=== PATIENT | male | born 1995 | race Caucasian/White ===

== ENCOUNTER 2017-02-07 01:30 | Emergency (ER) | payer SELFPAY ==
[~2017-02-07] VITALS: Ht 172.7 cm; Wt 60.0 kg
[~2017-02-07 01:30] MED LIST: DIVA500 PO; RISP1 PO
[2017-02-07 01:33] VITALS: BP 110/60; PULSE 72; RESP 16; TEMP 98.9; O2SAT 98
[2017-02-07] MEDS ORDERED: RISP2TAB37 PO (03:57)
[2017-02-07] MEDS ORDERED: DIVA500T PO (03:57)
[2017-02-07] MEDS ORDERED: VALP250 PO (03:57)
[2017-02-07 04:36] LABS: AUTOMATED NEUTROPHIL # 2.9 TH/MM3 (1.8-7.7); BASOPHIL # 0.1 TH/MM3 (0-0.2); BASOPHIL % 0.8 % (0.0-2.0); EOSINOPHIL # 0.2 TH/MM3 (0-0.4); EOSINOPHIL % 2.9 % (0.0-4.0); HEMATOCRIT 40.5 % (39.0-51.0); HEMO FLAGS DIFF FINAL; LYMPH % 46.8 % (9.0-44.0); LYMPHOCYTE # 3.7 TH/MM3 (1.0-4.8); MEAN CELL VOLUME 90.1 FL (80.0-100.0); MEAN CORPUSCULAR HEMOGLOBIN 31.9 PG (27.0-34.0); MEAN CORPUSCULAR HGB CONC 35.4 % (32.0-36.0); MONO % 12.4 % (0.0-8.0); NEUT % 37.1 % (16.0-70.0); PLATELET COUNT 205 TH/MM3 (150-450); RED CELL DISTRIBUTION WIDTH 13.3 % (11.6-17.2); WHITE BLOOD COUNT 7.9 TH/MM3 (4.0-11.0)
[2017-02-07 04:41] LABS: AMPHETAMINE, URINE NEG (NEG); BARBITURATES, URINE NEG (NEG); COCAINE, URINE NEG (NEG)
[2017-02-07 04:49] LABS: ALT (GPT) 15 U/L (12-78); ANION GAP 5 MEQ/L (5-15); AST (GOT) 11 U/L (15-37); BICARBONATE 28.7 MEQ/L (21.0-32.0); BLOOD UREA NITROGEN 13 MG/DL (7-18); CHLORIDE 106 MEQ/L (98-107); GLOMERULAR FILTRATION RATE 102 ML/MIN (>89); POTASSIUM 3.8 MEQ/L (3.5-5.1); SODIUM (NA) 140 MEQ/L (136-145)
[2017-02-07 04:50] LABS: ALKALINE PHOSPHATASE 84 U/L (45-117); TOTAL BILIRUBIN ADULT 0.5 MG/DL (0.2-1.0)
--- NOTE | 2017-02-07 05:29 | PD ---
HPI . Suicidal ideation Chief Complaint: Psychiatric Symptoms Time Seen by Provider: 04:11 Travel History International Travel<30 days: No Contact w/Intl Traveler<30days: No Traveled to known affect area: No History of Present Illness HPI Patient presents complaining with suicidal ideation. He reports that he's been feeling depressed for the last couple weeks. It became acutely worse tonight. He does not have a plan. PFSH Past Medical History ADHD: Yes Depression: Yes Diminished Hearing: No Immunizations Current: Yes Schizophrenia: Yes Past Surgical History Surgical History: No Previous Surgery Social History Alcohol Use: No Tobacco Use: Yes (1/2PPD) Substance Use: No Allergies-Medications (Allergen,Severity, Reaction): Coded Allergies: No Known Allergies (Unverified , 02/07/17) Reported Meds & Prescriptions Reported Meds & Active Scripts Active Reported Risperdal (Risperidone) 2 Mg Tab 2 Mg PO Q12HR Divalproex DR (Divalproex Sodium) 500 Mg Tabdr 500 Mg PO BID Review of Systems Except as stated in HPI: all other systems reviewed are Neg Psychiatric: Positive: Depression, Suicidal Ideations Physical Exam Narrative GENERAL: Awake and alert and in no acute distress. SKIN: Warm and dry. HEAD: Atraumatic. Normocephalic. EYES: Pupils equal and round. Extraocular movements are intact. NECK: Trachea midline. Neck is supple. CARDIOVASCULAR: Regular rate and rhythm. RESPIRATORY: No accessory muscle use. MUSCULOSKELETAL: No obvious deformities. No edema. NEUROLOGICAL: Awake and alert. No obvious cranial nerve deficits. Motor grossly within normal limits. Normal speech. PSYCHIATRIC: Pressured speech. Data Data Last Documented VS Vital Signs Date Time Temp Pulse Resp B/P Pulse Ox O2 Delivery O2 Flow Rate FiO2 02/07/17 01:33 98.9 72 16 110/60 98 Room Air Orders Complete Blood Count With Diff (02/07/17 04:11) Comprehensive Metabolic Panel (02/07/17 04:11) Psych Screen (02/07/17 04:11) Drug Screen, Random Urine (02/07/17 04:11) Alcohol (Ethanol) (02/07/17 04:11) Labs Laboratory Tests Test 02/07/17 04:27 White Blood Count 7.9 TH/MM3 Red Blood Count 4.50 MIL/MM3 Hemoglobin 14.4 GM/DL Hematocrit 40.5 % Mean Corpuscular Volume 90.1 FL Mean Corpuscular Hemoglobin 31.9 PG Mean Corpuscular Hemoglobin 35.4 % Concent Red Cell Distribution Width 13.3 % Platelet Count 205 TH/MM3 Mean Platelet Volume 8.1 FL Neutrophils (%) (Auto) 37.1 % Lymphocytes (%) (Auto) 46.8 % Monocytes (%) (Auto) 12.4 % Eosinophils (%) (Auto) 2.9 % Basophils (%) (Auto) 0.8 % Neutrophils # (Auto) 2.9 TH/MM3 Lymphocytes # (Auto) 3.7 TH/MM3 Monocytes # (Auto) 1.0 TH/MM3 Eosinophils # (Auto) 0.2 TH/MM3 Basophils # (Auto) 0.1 TH/MM3 CBC Comment DIFF FINAL Differential Comment Sodium Level 140 MEQ/L Potassium Level 3.8 MEQ/L Chloride Level 106 MEQ/L Carbon Dioxide Level 28.7 MEQ/L Anion Gap 5 MEQ/L Blood Urea Nitrogen 13 MG/DL Creatinine 0.92 MG/DL Estimat Glomerular Filtration 102 ML/MIN Rate Random Glucose 90 MG/DL Calcium Level 8.9 MG/DL Total Bilirubin 0.5 MG/DL Aspartate Amino Transf 11 U/L (AST/SGOT) Alanine Aminotransferase 15 U/L (ALT/SGPT) Alkaline Phosphatase 84 U/L Total Protein 6.8 GM/DL Albumin 3.9 GM/DL Urine Opiates Screen NEG Urine Barbiturates Screen NEG Urine Amphetamines Screen NEG Urine Benzodiazepines Screen NEG Urine Cocaine Screen NEG Urine Cannabinoids Screen POS Ethyl Alcohol Level LESS THAN 3 MG/DL MDM Medical Decision Making Medical Screen Exam Complete: Yes Emergency Medical Condition: Yes Medical Record Reviewed: Yes (patient has been seen here on several previous occasions. He has several previous psychiatric diagnoses including drug- induced mood disorder, polysubstance abuse, schizophrenia, bipolar disorder, schizoaffective disorder.) Differential Diagnosis Differential diagnosis includes but is not limited to depression with suicidal gesture, suicide attempt, suicidal ideation, attention seeking behavior. Narrative Course Patient presents to us complaining with suicidal ideation. He is homeless. He has been sound asleep since we finished our intake evaluation. CBC & BMP Diagram 02/07/17 04:27 Tox screen is positive for THC. This patient is medically clear for psychiatric evaluation. Diagnosis Primary Impression: Suicidal ideation Condition: Stable Teresa Ceja MD Feb 07, 2017 05:29
[2017-02-07 06:32] VITALS: BP 116/56; PULSE 57; RESP 18
[2017-02-07 09:35] VITALS: BP 117/56; PULSE 58; RESP 18; O2SAT 98
[2017-02-07 18:37] VITALS: BP 102/52; PULSE 78; RESP 17; TEMP 98.9; O2SAT 98
[2017-02-07 22:11] VITALS: BP 104/56; PULSE 50; RESP 17; O2SAT 98
[2017-02-08 02:16] VITALS: BP 139/64; PULSE 78; RESP 18; O2SAT 98
[2017-02-08 06:23] VITALS: BP 109/59; PULSE 69; RESP 19; O2SAT 99
--- NOTE | 2017-02-08 12:17 | MB ---
cc: LD PHILLIPS DATE OF CONSULTATION 02/08/2017 PHYSICIAN REQUESTING CONSULTATION Emergency department REASON FOR CONSULTATION Voluntary psychiatric evaluation. HISTORY OF PRESENT ILLNESS Mr. Jain is a 22-year-old male with a history of substance use issues and a reported history of depression who presents on a voluntary basis requesting psychiatric evaluation. The patient told the ED provider that he has been feeling depressed. Reviewing the electronic medical record, I see that I myself saw the patient in consultation in August of last year with a diagnosis of drug induced mood disorder at that time. He was previously admitted before that under Dr. Boykin. The patient seen and examined. Chart reviewed. Case discussed with nurse in the [facility]. There has been no evidence of any behavioral disturbance, no suicidality or homicidality while under observation in the [facility]. On my examination today, the patient is clinically sober. He reports that he came into the emergency room last night because he was feeling somewhat anxious since Tuesday. There was no clear trigger for this anxiety. He reports that this anxiety is now completely resolved. He tells me "I do not want to kill myself." He denies any suicidal or homicidal ideation, intent or plan on direct questioning. Mood is fair and I can elicit no depressive or hypomanic/manic symptoms at this time. He denies any audiovisual hallucinations and I can elicit no delusional beliefs. The remainder of the psychiatric ROS is negative. The patient is requesting discharge from the psychiatric emergency room this morning. PAST PSYCHIATRIC HISTORY The patient reports a history of depression. He follows psychiatrically at [facility] and is reportedly prescribed Zoloft with which he has good adherence. He cannot recall when his most recent psychiatric admission was, but as I said above, he was admitted here most recently under Dr. Boykin last year. He denies any history of suicide attempts. FAMILY HISTORY The patient denies any family history of serious mental illness, substance use disorder or suicide. CHEMICAL DEPENDENCY HISTORY The patient reports regular use of cannabis. He also drinks but not daily. He does not black out when he drinks. SOCIAL HISTORY The patient is presently without stable housing. He is single with no children. He does not work and has a ninth grade education. He denies any or legal history. He denies any history of violent crime. He denies any access to guns or firearms. PAST MEDICAL HISTORY The patient denies any history of medical illness. REVIEW OF SYSTEMS No reported headache, chest pain, vision or hearing changes, bowel or bladder issues. No other physical complaints. PHYSICAL EXAMINATION VITAL SIGNS: T98.9, P69, R19, BP109/59, SpO2 99% RA A physical examination was completed by the emergency room staff. On my examination today, the patient appears to be well-nourished and well-developed and in no acute physical distress. No motor abnormalities noted. LABORATORY DATA CBC unremarkable, CMP unremarkable, Tox +THC. MENTAL STATUS EXAM The patient is in hospital gown. He is well-groomed and appears to be attending to basic needs. He is awake, alert and oriented x3. No evidence of delirium. No motor abnormalities noted. Speech is within normal limits for rate, tone and volume. Language and fund of knowledge seem average. Mood is fair and affect is full and reactive. Thought process linear. No loosening of associations. No evident delusions. Denies audiovisual hallucinations. Denies suicidal or homicidal ideation, intent or plan. Insight and judgment are fair. ASSESSMENT/PLAN 1. Adjustment disorder, unspecified, now resolved, F43.20. 2. Cannabis abuse, F12.10. This is a 22-year-old male with psychiatric history as detailed above who presents on a voluntary basis to the emergency department for psychiatric evaluation. On my examination today, the patient is cooperative with evaluation. There is no evidence of any unstable mood, anxiety or psychotic disorder in this patient at this time. He is denying suicidal or homicidal ideation. He appears to be attending to his basic needs. Putting this information together and weighing the acute, chronic, and protective factors, I ocean biologist that the patient does not presently meet [place] Act criteria. He is requesting discharge from the psychiatric emergency room. Given that he does not meet Vinson Act criteria and is requesting discharge, I must recommend his discharge from the emergency room today. I have instructed the patient to follow up with his outpatient psychiatric provider. I have counseled him to abstain from substances of abuse. I have reminded him of warning signs for need to return to the psychiatric emergency room as part of general safety plan. The patient is otherwise psychiatrically clear for discharge from the ED. Thank you very much for this consultation. Ld Phillips DC/DJL /9:49 AM /12:09 PM MTDJacquelyn
== END 2017-02-08 11:18 | disposition home or self-care (01) ==
LOC: NEPC 01:30 → NEPJ 02-08 11:18
DX: R45.851 Suicidal ideations (principal); F32.9 Major depressive disorder, single episode, unspecified; F90.9 Attention-deficit hyperactivity disorder, unspecified type; F20.9 Schizophrenia, unspecified; F17.200 Nicotine dependence, unspecified, uncomplicated
CPT/HCPCS: 80053; 80307; 85025; 99285

== ENCOUNTER 2017-03-14 20:54 | Emergency (ER) | payer SELFPAY ==
[~2017-03-14 20:54] MED LIST changes: -DIVA500 PO; +DIVA500T PO; -RISP1 PO; +RISP2TAB37 PO
[2017-03-14] MEDS ORDERED: CELE10TA PO (21:23)
[2017-03-14] MEDS ORDERED: BUPR150CR PO (21:23)
[2017-03-14 21:25] VITALS: BP 118/70; PULSE 84; RESP 16; TEMP 97.6; O2SAT 96
--- NOTE | 2017-03-14 22:59 | PD ---
HPI . Intoxication Chief Complaint: Alcohol/Drug Intoxication Time Seen by Provider: 22:36 Travel History International Travel<30 days: No Contact w/Intl Traveler<30days: No Traveled to known affect area: No History of Present Illness HPI Patient is brought to us I believe by the police department for acute intoxication. Other history is obtainable from the patient. PFSH Past Medical History ADHD: Yes Depression: Yes Diminished Hearing: No Immunizations Current: Yes Schizophrenia: Yes Past Surgical History Surgical History: No Previous Surgery Social History Alcohol Use: Yes Tobacco Use: Yes (1/2PPD) Substance Use: Yes (marijuana) Allergies-Medications (Allergen,Severity, Reaction): Coded Allergies: No Known Allergies (Unverified , 03/14/17) Reported Meds & Prescriptions Reported Meds & Active Scripts Active Reported Wellbutrin SR 12 HR (Bupropion HCl) 150 Mg Tab 150 Mg PO DAILY Celexa (Citalopram Hydrobromide) 10 Mg Tab 10 Mg PO DIRECTED Risperdal (Risperidone) 2 Mg Tab 2 Mg PO Q12HR Review of Systems ROS Limitations: Intoxication Physical Exam Narrative GENERAL: Asleep. No acute distress. SKIN: Warm and dry. HEAD: Atraumatic. Normocephalic. EYES: Pupils equal and round. NECK: Trachea midline. CARDIOVASCULAR: Regular rate and rhythm. RESPIRATORY: No accessory muscle use. MUSCULOSKELETAL: No obvious deformities. No edema. NEUROLOGICAL: Moving all 4 extremities equally PSYCHIATRIC: Unable to assess Data Data Last Documented VS Vital Signs Date Time Temp Pulse Resp B/P Pulse Ox O2 Delivery O2 Flow Rate FiO2 03/14/17 21:25 97.6 84 16 118/70 96 MDM Medical Decision Making Medical Screen Exam Complete: Yes Emergency Medical Condition: Yes Differential Diagnosis Differential diagnosis of altered mental status includes but is not limited to infection, electrolyte abnormality, neurological event, intoxication Narrative Course Patient is brought in to us with acute intoxication. He will be allowed to sleep it off. Diagnosis Primary Impression: Acute alcohol intoxication Qualified Code: F10.920 - Acute alcohol intoxication, uncomplicated Patient Instructions: Alcohol Intoxication (DC), General Instructions Disposition: 01 DISCHARGE HOME Condition: Stable Teresa Ceja MD March 14, 2017 22:58
[2017-03-14 23:40] VITALS: BP 108/68; PULSE 76; RESP 16; O2SAT 98
== END 2017-03-15 06:27 | disposition home or self-care (01) ==
LOC: NEPD 20:54
DX: F10.129 Alcohol abuse with intoxication, unspecified (principal); F90.9 Attention-deficit hyperactivity disorder, unspecified type; F32.9 Major depressive disorder, single episode, unspecified; F20.9 Schizophrenia, unspecified; F17.210 Nicotine dependence, cigarettes, uncomplicated; F12.90 Cannabis use, unspecified, uncomplicated; Y90.9 Presence of alcohol in blood, level not specified
CPT/HCPCS: 99281

== ENCOUNTER 2017-04-12 11:38 | Inpatient (IN) | payer SELFPAY ==
[~2017-04-12] VITALS: Ht 172.7 cm; Wt 55.6 kg
[~2017-04-12 11:38] MED LIST changes: +BUPR150CR PO; +CELE10TA PO; -DIVA500T PO
[2017-04-12] MEDS ORDERED: ACETAMINOPHEN 325 MG TAB PO PRN (12:30)
[2017-04-12] MEDS ORDERED: diphenhydrAMINE HCL 50 MG CAP PO PRN (13:00)
[2017-04-12] MEDS ORDERED: BENZTROPINE MESYLATE 1 MG TAB PO PRN (13:00)
[2017-04-12] MEDS ORDERED: ALUMINUM/MAGNESIUM/SIMETH 30 ML CUP PO PRN (13:00)
[2017-04-12] MEDS ORDERED: BENZTROPINE MESYLATE 2 MG/2 ML VIAL IM PRN (13:00)
[2017-04-12] MEDS ORDERED: MAGNESIUM HYDROXIDE SUSP 30 ML CUP PO PRN (13:00)
[2017-04-12 14:53] VITALS: BP 115/72; PULSE 69; RESP 18; TEMP 98.3; O2SAT 96
[2017-04-12 16:47] VITALS: BP 105/58; PULSE 61; RESP 18; TEMP 98; O2SAT 97
[2017-04-13 06:00] VITALS: BP 97/53; PULSE 73; RESP 18; TEMP 98.2; O2SAT 97
[2017-04-13] MEDS: REMOVE OLD PATCH T-DERMAL SCH (09:00)
[2017-04-13 09:17] LABS: ANION GAP 10 MEQ/L (5-15); BICARBONATE 26.3 MEQ/L (21.0-32.0); BLOOD UREA NITROGEN 13 MG/DL (7-18); CHLORIDE 106 MEQ/L (98-107); GLOMERULAR FILTRATION RATE 133 ML/MIN (>89); POTASSIUM 3.9 MEQ/L (3.5-5.1); SODIUM (NA) 142 MEQ/L (136-145)
[2017-04-13 09:23] LABS: HDL CHOLESTEROL 39.7 MG/DL (40.0-60.0); LDL CHOLESTEROL 118 MG/DL (0-99)
[2017-04-13] MEDS: NICOTINE 21 MG/24 HR PATCH T-DERMAL SCH (09:28)
--- NOTE | 2017-04-13 12:37 | HHI.HP ---
Provisional Diagnosis Admission Date Apr 12, 2017 at 11:57 [place] I. 1. Adjustment disorder with depressed mood Rule out drug-induced mood disorder 2. Cannabis abuse [place] II. Deferred [place] V. GAF is at least 45 presently Certification of Person's Competence To Provide Express and Informed Consent I have personally examined Jimmie Jain , a person being served at [facility] on, Apr 13, 2017 12:37. Express and informed consent means consent voluntarily given in writing, by a competent person, after sufficient explanation and disclosure of the subject matter involved to enable the person to make a knowing and willful decision without any element of force, fraud, deceit, duress, or other form of constraint or coercion. This person is 18 years of age or older, is not now known to be incompetent to consent to treatment with a guardian advocate, and does not have a health care surrogate or proxy currently making medical treatment decisions. I have found this person to be one of the following: [x] Competent to provide express and informed consent, as defined above, for voluntary admission to this facility and is competent to provide express and informed consent for treatment. He/she has the consistent capacity to make well reasoned, willful, and knowing decisions concerning his or her medical or mental health treatment. The person fully and consistently understands the purpose of the admission for examination/placement and is fully capable of personally exercising all rights assured [place] Incompetent to provide express and informed consent to voluntary admission, and this is incompetent to provide express and informed consent to treatment. The person must be transferred to involuntary status and a petition for a guardian advocate filed with the Circuit Court. [] Refusing to provide express and informed consent to voluntary admission but is competent to provide express and informed consent for treatment. The person must be discharged or transferred to involuntary status. Form shall be completed within 24 hours of a person's arrival at the receiving facility and filed in the clinical record of each person: 1. Admitted on a voluntary basis 2. Permitted to provide express and informed consent to his/her own treatment 3. Allowed to transfer from involuntary to voluntary status 4. Prior to permitting a person to consent to his or her own treatment after having been previously found incompetent to consent to treatment. History of Present Illness Capacity: Has Capacity HPI Mr. Jain is a 22-year-old male with a reported history of depression, anxiety and ADHD and a chart history of psychotic disorder and substance use issues who presents in transfer from outside hospital under a Vinson act alleging suicidal ideation. Outside hospital records reviewed. Reviewing are on electronic medical record, I note that I have seen the patient twice in the last year in consultation in the emergency department and the patient was admitted most recently here under Dr. Boykin in July of last year. I also note several ED visits for substance use issues. Patient seen and examined with counselor. Chart reviewed. Case discussed with nursing staff. Patient presents as somewhat manipulative. He denies suicidal ideation, intent or plan at this time but says "I don't want to take the risk" of leaving the hospital at this time, although I had not even broached the subject of a possible discharge at that point. He describes his mood as depressed for the last month without clear trigger. His sleep and appetite are reportedly fair. He endorses some feelings of hopelessness or worthlessness. He denies audiovisual hallucinations and I can elicit no delusional material. No hypomanic or manic symptoms noted. He denies any homicidal ideation. He has been nonadherent with his psychotropic medications since discharge from the inpatient psychiatric unit most recently. The remainder of the psychiatric ROS is negative. Past psychiatric history: The patient reports prior diagnoses as noted above. He was apparently previously an outpatient of Dr. Bansal, but has not followed up psychiatrically in some time. He denies a history of suicide attempts. He does have a history of nonsuicidal self-injurious behavior, namely cutting. Says that he does well on Celexa and Wellbutrin. He believes his most recent doses were Celexa 20 mg daily and Wellbutrin 150 mg daily. Family history: The patient denies a family history of serious mental illness or suicide. Chemical dependency history: The patient admits to ongoing use of cannabis, and his urine toxicology from outside hospital was positive for this. He also endorses a history of cocaine use, most recently a month ago. Social history: The patient reports that he lives with his grandmother. He is single with no children. He dropped out of the ninth grade. Denies any history. Denies any legal history. Denies any access to guns or firearms. Denies any adventist or spiritual beliefs. Denies any history of trauma. Review of Systems Except as stated in HPI: all other systems reviewed are Neg Past Psych History Psychological trauma history No reported history of trauma Violence risk - others (6 mos) Lower imminent risk. Denies homicidal ideation. No known history of violence. No evidence of violence on the unit. Violence risk - self (6 mos) Indeterminate but suspect lower imminent risk. Patient denies suicidal ideation at this time but alleges that he was suicidal on initial presentation to outside hospital. Substance use is certainly a risk factor. Patient denies a history of suicide attempts or family history of suicide attempts. Substance Abuse History Drugs/Alcohol past 12 months See above Past Family Social History Coded Allergies: No Known Allergies (Unverified , 03/14/17) Past Medical History See electronic medical record Discontinued Reported Medications Bupropion HCl ER 12 HR (Wellbutrin SR 12 HR)150 Mg Tut952 Mg PO DAILY Ref 0 03/14/17 Citalopram (Celexa)10 Mg Tab10 Mg PO DIRECTED #30 TAB Ref 0 03/14/17 Risperidone (Risperdal)2 Mg Tab2 Mg PO Q12HR #60 TAB Ref 0 02/07/17 Current Medications Medications (Trade) Dose Ordered Sig/Emerald Route Start Time Stop Time Status Last Admin (Benadryl) 50 mg HS PRN PO 04/12/17 13:00 (Tylenol) 650 mg Q4H PRN PO 04/12/17 12:30 (Milk Of Magnesia Liq) 30 ml DAILY PRN PO 04/12/17 13:00 (Mag-Al Plus Susp Liq) 30 ml Q6H PRN PO 04/12/17 13:00 (Habitrol 21 Mg Patch.24 Hr) 1 patch DAILY T-DERMAL 04/13/17 09:00 04/13/17 09:28 (Atarax) 50 mg Q6H PRN PO 04/12/17 13:00 (Cogentin) 1 mg Q12H PRN PO 04/12/17 13:00 (Cogentin Inj) 1 mg Q12H PRN IM 04/12/17 13:00 Miscellaneous Information 1 DAILY T-DERMAL 04/13/17 09:00 Family History See above Social History See above Patient's Strengths (min. 2) In a monitored setting. Verbally fluent. Physical Exam Physical exam completed at outside hospital. On my examination today, the patient appears to be well-nourished and well-developed and in no acute physical distress. No abnormal motor movements noted. No signs of any withdrawal noted. Labs and vital signs reviewed: Vital Signs Vital Signs Date Time Temp Pulse Resp B/P Pulse Ox O2 Delivery O2 Flow Rate FiO2 04/13/17 06:00 98.2 73 18 97/53 97 Lab Results Item Value Date Time Sodium Level 142 MEQ/L 04/13/17 0715 Potassium Level 3.9 MEQ/L 04/13/17 0715 Chloride Level 106 MEQ/L 04/13/17 0715 Anion Gap 10 MEQ/L 04/13/17 0715 Carbon Dioxide Level 26.3 MEQ/L 04/13/17 0715 Blood Urea Nitrogen 13 MG/DL 04/13/17 0715 Creatinine 0.73 MG/DL 04/13/17 07 Laboratories from outside hospital reviewed. Urine toxicology at outside hospital was positive for cannabinoids. Mental Status Examination Patient is in hospital gown. He is fairly well groomed and maintaining basic hygiene. He is awake and alert and oriented to person and hospital at least. No evidence of delirium. No abnormal motor movements noted. Speech is within normal limits for rate, tone and volume. Language and fund of knowledge seemed average. Focus and concentration intact. Memory grossly intact on clinical exam. Mood is reportedly somewhat depressed and affect is little bit blunted. Thought process linear. No loosening of associations. No delusional material. Denies audiovisual hallucinations. Denies suicidal or homicidal ideation, intent or plan at this time. Insight and judgment are likely chronically poor. Assessment & Plan Problem List: (1) Adjustment disorder ICD Code: F43.20 (2) Cannabis abuse ICD Code: F12.10 Assessment & Plan This is a 22-year-old male with psychiatric history as detailed above who presents in transfer from outside hospital under a V[place] act. On my examination today, the patient now denies suicidal ideation but says that he does not feel presently safe to leave the hospital as he remains mildly depressed. Patient does endorse some depressive symptomatology and admits to recent use of cannabis. Possibility that his psychiatric symptoms are substance induced. I see that he has a chart history of psychotic disorder, but I cannot appreciate any signs or symptoms of psychosis in this patient at this time. I will plan to admit the patient to the inpatient psychiatric unit for observation and stabilization. Admit inpatient. Voluntary status. Resume Celexa 20 mg daily. Resume Wellbutrin, and I will titrate this slightly to Wellbutrin SR 100 mg twice daily to target reported low mood. Atarax as needed for anxiety, Cogentin as needed for EPS, Benadryl as needed for sleep. Vitals every shift. Counselor to see. Disposition planning. Estimated length of stay: 3-5 days. Discharge Planning Pending psychiatric stabilization. Request HC Surrog/Guard Advoc?: No Problem Qualifiers (1) Adjustment disorder: Qualified Code: F43.21 - Adjustment disorder with depressed mood Ld Phillips MD Apr 13, 2017 12:37
[2017-04-13] MEDS: hydrOXYzine HCL 50 MG TAB PO PRN ×2 (12:57→21:33)
[2017-04-13] MEDS: buPROPion HCL 100 MG SUSTAINED RELEASE TAB PO SCH (15:07)
[2017-04-13 16:00] VITALS: BP 117/62; PULSE 78; RESP 18; TEMP 97.5; O2SAT 100
[2017-04-13 16:35] LABS: HEMOGLOBIN A1a 1.3 %; HEMOGLOBIN A1b 0.8 %; HEMOGLOBIN Ao 85.6 %; HEMOGLOBIN F 1.2 %; HEMOGLOBIN LA1C 1.9 %; HEMOGLOBIN P3 3.5 %
[2017-04-14 05:23] VITALS: BP 101/50; PULSE 62; RESP 16; TEMP 97.5; O2SAT 97
[2017-04-14] MEDS: buPROPion HCL 100 MG SUSTAINED RELEASE TAB PO SCH (08:56)
[2017-04-14] MEDS: REMOVE OLD PATCH T-DERMAL SCH (08:57)
[2017-04-14] MEDS: NICOTINE 21 MG/24 HR PATCH T-DERMAL SCH (08:58)
[2017-04-14] MEDS ORDERED: CITALOPRAM HYDROBROMIDE 20 MG TAB PO SCH (09:00)
[2017-04-14] MEDS ORDERED: CELE20TA PO (11:30)
[2017-04-14] MEDS ORDERED: BUPR100CR PO (11:30)
--- NOTE | 2017-04-14 11:30 | HHI.DS ---
Psychiatry Discharge Summary Inpatient Psychiatric care?: Yes Advance Directive: No Reason Not Provided: Due to Patient Condition Mental Health AdvanceDirective: No Health Care Proxy: No Admission Admission Date Apr 12, 2017 at 11:57 Admission Diagnosis: (1) Adjustment disorder ICD Code: F43.20 (2) Cannabis abuse ICD Code: F12.10 Brief History Mr. Jain is a 22-year-old male with a reported history of depression, anxiety and ADHD and a chart history of psychotic disorder and substance use issues who presents in transfer from outside hospital under a Vinson act alleging suicidal ideation. Outside hospital records reviewed. Reviewing are on electronic medical record, I note that I have seen the patient twice in the last year in consultation in the emergency department and the patient was admitted most recently here under Dr. Boykin in July of last year. I also note several ED visits for substance use issues. Patient seen and examined with counselor. Chart reviewed. Case discussed with nursing staff. Patient presents as somewhat manipulative. He denies suicidal ideation, intent or plan at this time but says "I don't want to take the risk" of leaving the hospital at this time, although I had not even broached the subject of a possible discharge at that point. He describes his mood as depressed for the last month without clear trigger. His sleep and appetite are reportedly fair. He endorses some feelings of hopelessness or worthlessness. He denies audiovisual hallucinations and I can elicit no delusional material. No hypomanic or manic symptoms noted. He denies any homicidal ideation. He has been nonadherent with his psychotropic medications since discharge from the inpatient psychiatric unit most recently. The remainder of the psychiatric ROS is negative. Past psychiatric history: The patient reports prior diagnoses as noted above. He was apparently previously an outpatient of Dr. Bansal, but has not followed up psychiatrically in some time. He denies a history of suicide attempts. He does have a history of nonsuicidal self-injurious behavior, namely cutting. Says that he does well on Celexa and Wellbutrin. He believes his most recent doses were Celexa 20 mg daily and Wellbutrin 150 mg daily. Family history: The patient denies a family history of serious mental illness or suicide. Chemical dependency history: The patient admits to ongoing use of cannabis, and his urine toxicology from outside hospital was positive for this. He also endorses a history of cocaine use, most recently a month ago. Social history: The patient reports that he lives with his grandmother. He is single with no children. He dropped out of the ninth grade. Denies any history. Denies any legal history. Denies any access to guns or firearms. Denies any baptism or spiritual beliefs. Denies any history of trauma. Tobacco Use In Past 30 Days: 4 or Less Cigarettes/Day Alcohol Use: 2-4 Times Per Month Hospital Course Patient was admitted to a locked, inpatient psychiatric unit. Appropriate precautions were in place throughout patient's hospital stay. Patient was seen and examined daily on the unit by psychiatry and also visited by counselor. Psychotropic medication management was undertaken. Patient tolerated medications well without side effects. Patient had improvement in his presenting psychiatric symptomatology. There was no evidence of any suicidality or homicidality on the inpatient unit. Patient has remained in good behavioral control and has been medication compliant. Charting indicates that the patient is sleeping and eating well. On the day of discharge: Patient seen and examined with counselor. Chart reviewed. Case discussed with nursing staff. No behavioral issues noted overnight. On my examination today, the patient is requesting discharge from the inpatient psychiatric unit. He feels that his mood is improved versus initial presentation. He slept well overnight. He denies any suicidal or homicidal ideation, intent or plan on direct questioning. He is future oriented. He denies any audiovisual hallucinations, and I can elicit no delusional beliefs. He denies side effects from medications. He has no physical complaints. Weighing the acute, chronic, and protective factors and based on the available evidence, I cert pharmacy tech to a reasonable degree of medical certainty that the patient is at low imminent risk of harm to self or others from a mental illness as defined under the Vinson act and his level of function is adequate for outpatient care. The patient does not meet criteria for involuntary psychiatric hospitalization and inasmuch as he is requesting discharge from the inpatient psychiatric unit today, I must arrange for his discharge with psychiatric follow-up as arranged by counselor. I have also recommended that the patient pursue chemical dependency evaluation and treatment. I counseled the patient regarding warning signs for need to return to the psychiatric emergency room as part of the general safety plan. I have provided the patient with prescriptions for his psychotropic medications, and we will fill a limited supply of these medications on discharge. Patient is also follow-up with primary care. Results Blood Pressure 101 / 50 Vital Signs Date Time Temp Pulse Resp B/P Pulse Ox O2 Delivery O2 Flow Rate FiO2 04/14/17 05:23 97.5 62 16 101/50 97 Laboratory Tests Test 04/13/17 07:15 LDL Cholesterol 118 MG/DL (0-99) HDL Cholesterol 39.7 MG/DL (40.0-60.0) Laboratory Results Test 04/13/17 07:15 Hemoglobin A1c 5.3 % (4.3-6.0) Triglycerides Level 139 MG/DL (42-150) Cholesterol Level 185 MG/DL (120-200) LDL Cholesterol 118 MG/DL (0-99) HDL Cholesterol 39.7 MG/DL (40.0-60.0) Summary of Procedures None done Imaging None done Pending results at discharge: No Medications # of Antipsychotic meds at D/C: 0 Approp Antipsych med options 1 - Minimum of three failed multiple trials of monotherapy. 2 - Documented plan to taper to monotherapy due to previous use of multiple meds OR cross-taper in progress at D/C. 3 - Documentation of augmentation of Clozapine. 4 - Justification other than those listed in allowable values 1-3, document here : Discharge Discharge Date: Apr 14, 2017 Discharge Diagnosis: (1) Drug-induced mood disorder Diagnosis: Principal (resolved) ICD Code: F19.94 (2) Cannabis abuse Diagnosis: Secondary (counseled to quit) ICD Code: F12.10 GAF on discharge is 60 Mental Status Exam at Disch Patient is in hospital gown. He is well groomed and attending to basic hygiene. He is awake and alert and oriented to person and hospital at least. No evidence of delirium. No motor abnormalities noted. Speech is within normal limits for rate, tone and volume. Language and fund of knowledge are average. Focus and concentration intact. Memory grossly intact on clinical exam. Mood is improved versus admission and affect remains little blunted. Thought processes linear. No loosening of associations. No evident delusional beliefs. Denies audiovisual hallucinations. Denies suicidal or homicidal ideation, intent or plan. Insight and judgment are fair. Pt Condition on Discharge: Stable Discharge Disposition: Discharge Home Discharge Instructions Diet Instructions: As Tolerated, No Restrictions Activities you can perform: Weight Bearing as Madi Scheduled Appointment: as per counselor's notes New Medications: Bupropion HCl ER 12 HR (Wellbutrin SR 12 HR) 100 Mg Tab 100 MG PO BID@09,15 Mental Health Days 15 Ref 1 TAB Citalopram (Celexa) 20 Mg Tab 20 MG PO DAILY Mental Health Days 15 Ref 1 TAB Discharge Time <= 30 minutes Discharge/Advance Care Plan Health Problems: (1) Adjustment disorder (2) Cannabis abuse Goals to promote your health * To prevent worsening of your condition and complications * To maintain your health at the optimal level Directions to meet your goals Take your medications as prescribed Follow your dietary instruction Follow activity as directed Keep your appointments as scheduled Take your immunizations and boosters as scheduled If your symptoms worsen call your PCP, if no PCP go to Urgent Care Center or Emergency Room For 16/05 questions related to your inpatient stay or results of tests pending at discharge, please contact Dr. Ld Phillips at Smoking is Dangerous to Your Health. Avoid second hand smoking Problem Qualifiers (1) Adjustment disorder: Qualified Code: F43.21 - Adjustment disorder with depressed mood Ld Phillips MD Apr 14, 2017 11:30
== END 2017-04-14 13:40 | disposition home or self-care (01) | DRG 881 ==
LOC: H260 11:57
PROVIDERS: ADMIT Psychiatry & Neurology Psychiatry; ATTEND Psychiatry & Neurology Psychiatry
DX: F43.21 Adjustment disorder with depressed mood (principal); R45.851 Suicidal ideations; F19.94 Other psychoactive substance use, unspecified with psychoactive substance-induced mood disorder; F90.9 Attention-deficit hyperactivity disorder, unspecified type; F12.10 Cannabis abuse, uncomplicated; Z79.899 Other long term (current) drug therapy; Z87.891 Personal history of nicotine dependence
CPT/HCPCS: 80048; 80061; 83036; Q0163

== ENCOUNTER 2017-05-06 16:02 | Emergency (ER) | payer OTHER ==
[~2017-05-06] VITALS: Ht 167.6 cm; Wt 55.0 kg
[~2017-05-06 16:02] MED LIST changes: +BUPR100CR PO; -BUPR150CR PO; -CELE10TA PO; +CELE20TA PO; -RISP2TAB37 PO
[2017-05-06 16:16] VITALS: BP 114/66; PULSE 78; TEMP 98.4; O2SAT 98
[2017-05-06 17:04] LABS: BASOPHIL % 0.5 % (0.0-2.0); EOSINOPHIL # 0.3 TH/MM3 (0-0.4); EOSINOPHIL % 3.2 % (0.0-4.0); HEMATOCRIT 45.8 % (39.0-51.0); HEMO FLAGS DIFF FINAL; LYMPH % 37.1 % (9.0-44.0); LYMPHOCYTE # 3.1 TH/MM3 (1.0-4.8); MEAN CELL VOLUME 91.4 FL (80.0-100.0); MEAN CORPUSCULAR HEMOGLOBIN 31.4 PG (27.0-34.0); MEAN CORPUSCULAR HGB CONC 34.3 % (32.0-36.0); MONO % 10.5 % (0.0-8.0); NEUT % 48.7 % (16.0-70.0); PLATELET COUNT 247 TH/MM3 (150-450); RED BLOOD COUNT 5.01 MIL/MM3 (4.50-5.90); RED CELL DISTRIBUTION WIDTH 13.4 % (11.6-17.2); WHITE BLOOD COUNT 8.3 TH/MM3 (4.0-11.0)
[2017-05-06 17:19] LABS: ANION GAP 8 MEQ/L (5-15); AST (GOT) 12 U/L (15-37); BICARBONATE 27.1 MEQ/L (21.0-32.0); BLOOD UREA NITROGEN 14 MG/DL (7-18); CHLORIDE 105 MEQ/L (98-107); GLOMERULAR FILTRATION RATE 99 ML/MIN (>89); POTASSIUM 4.1 MEQ/L (3.5-5.1); SODIUM (NA) 140 MEQ/L (136-145)
[2017-05-06 17:22] LABS: ALKALINE PHOSPHATASE 84 U/L (45-117); ALT (GPT) 16 U/L (12-78); TOTAL BILIRUBIN ADULT 0.4 MG/DL (0.2-1.0)
--- NOTE | 2017-05-06 17:30 | PD ---
HPI Chief Complaint: Psychiatric Symptoms Time Seen by Provider: 17:27 Travel History International Travel<30 days: No Contact w/Intl Traveler<30days: No History of Present Illness HPI 22-year-old male presents to the emergency Department as a transfer from [facility] for psychiatric evaluation. Apparently, the patient went to [facility] complaining of suicidal ideation. However, he now states that he has no suicidal or homicidal ideation. The patient reports history of depression ADHD. He is currently on Celexa and Wellbutrin. He states he drinks one beer daily. He denies illicit drug use. Patient states he had no plan and currently has no plan to hurt himself. PFSH Past Medical History ADHD: Yes Anxiety: Yes Depression: Yes Cancer: No Cardiovascular Problems: No Diabetes: No Diminished Hearing: No Genitourinary: No Headaches: No Musculoskeletal: No Neurologic: No Psychiatric: Yes (Mood Disoder and Substance Abuse ) Reproductive: No Respiratory: No Immunizations Current: Yes Schizophrenia: Yes Seizures: No Tetanus Vaccination: < 5 Years Social History Alcohol Use: Yes (Liquor, "a lot" and yesterday) Tobacco Use: Yes Substance Use: Yes (cocaine, everyday until a few months ago ) Allergies-Medications (Allergen,Severity, Reaction): Coded Allergies: No Known Allergies (Unverified , 03/14/17) Reported Meds & Prescriptions Reported Meds & Active Scripts Active Celexa (Citalopram Hydrobromide) 20 Mg Tab 20 Mg PO DAILY 15 Days Wellbutrin SR 12 HR (Bupropion HCl) 100 Mg Tab 100 Mg PO BID@09,15 15 Days Review of Systems Except as stated in HPI: all other systems reviewed are Neg Physical Exam Narrative GENERAL: Well-nourished, well-developed male patient, ambulatory. Afebrile. SKIN: Focused skin assessment warm/dry. HEAD: Normocephalic. EYES: No scleral icterus. No injection or drainage. NECK: Supple, trachea midline. No JVD or lymphadenopathy. CARDIOVASCULAR: Regular rate and rhythm without murmurs, gallops, or rubs. RESPIRATORY: Breath sounds equal bilaterally. No accessory muscle use. GASTROINTESTINAL: Abdomen soft, non-tender, nondistended. MUSCULOSKELETAL: No cyanosis, or edema. PSYCHIATRIC: No delusional thought processes. No hallucinations. Data Data Last Documented VS Vital Signs Date Time Temp Pulse Resp B/P Pulse Ox O2 Delivery O2 Flow Rate FiO2 05/06/17 16:16 98.4 78 114/66 98 Room Air Orders Psych Screen (05/06/17 16:10) Complete Blood Count With Diff (05/06/17 16:35) Comprehensive Metabolic Panel (05/06/17 16:35) Drug Screen, Random Urine (05/06/17 16:35) Alcohol (Ethanol) (05/06/17 16:35) Diet Regular Basic (05/06/17 Dinner) Labs Laboratory Tests Test 05/06/17 16:20 White Blood Count 8.3 TH/MM3 Red Blood Count 5.01 MIL/MM3 Hemoglobin 15.7 GM/DL Hematocrit 45.8 % Mean Corpuscular Volume 91.4 FL Mean Corpuscular Hemoglobin 31.4 PG Mean Corpuscular Hemoglobin 34.3 % Concent Red Cell Distribution Width 13.4 % Platelet Count 247 TH/MM3 Mean Platelet Volume 8.0 FL Neutrophils (%) (Auto) 48.7 % Lymphocytes (%) (Auto) 37.1 % Monocytes (%) (Auto) 10.5 % Eosinophils (%) (Auto) 3.2 % Basophils (%) (Auto) 0.5 % Neutrophils # (Auto) 4.0 TH/MM3 Lymphocytes # (Auto) 3.1 TH/MM3 Monocytes # (Auto) 0.9 TH/MM3 Eosinophils # (Auto) 0.3 TH/MM3 Basophils # (Auto) 0.0 TH/MM3 CBC Comment DIFF FINAL Differential Comment Sodium Level 140 MEQ/L Potassium Level 4.1 MEQ/L Chloride Level 105 MEQ/L Carbon Dioxide Level 27.1 MEQ/L Anion Gap 8 MEQ/L Blood Urea Nitrogen 14 MG/DL Creatinine 0.94 MG/DL Estimat Glomerular Filtration 99 ML/MIN Rate Random Glucose 83 MG/DL Calcium Level 9.3 MG/DL Total Bilirubin 0.4 MG/DL Aspartate Amino Transf 12 U/L (AST/SGOT) Alanine Aminotransferase 16 U/L (ALT/SGPT) Alkaline Phosphatase 84 U/L Total Protein 7.5 GM/DL Albumin 4.1 GM/DL Urine Opiates Screen NEG Urine Barbiturates Screen NEG Urine Amphetamines Screen NEG Urine Benzodiazepines Screen NEG Urine Cocaine Screen NEG Urine Cannabinoids Screen NEG Ethyl Alcohol Level LESS THAN 3 MG/DL MDM Medical Decision Making Medical Screen Exam Complete: Yes Emergency Medical Condition: Yes Medical Record Reviewed: Yes Differential Diagnosis Depression versus anxiety versus bipolar disorder versus substance abuse versus mood disorder versus schizophrenia Narrative Course 21-year-old male presents to the emergency department as a transfer from [facility] for evaluation of suicidal ideation. He states under Vinson act by the physician for a possible [place]. The patient states he no longer has any suicidal thoughts. CBC, CMP, urine drug screen, alcohol level are ordered and pending. CBC shows no acute abnormality. CMP shows no acute abnormality. Alcohol level is less than 3. Urine drug screen is negative. Patient is medically cleared for psychiatric screening and disposition. Mental health screening discussed with the patient. Psychiatric screen ordered. Diagnosis Primary Impression: Medical clearance for psychiatric admission Additional Instructions: Patient is medically cleared for psychiatric screening and disposition per Condition: Stable Pari Jacobo May 06, 2017 17:30
[2017-05-06 17:55] LABS: AMPHETAMINE, URINE NEG (NEG); BARBITURATES, URINE NEG (NEG); COCAINE, URINE NEG (NEG)
[2017-05-06 22:55] VITALS: BP 102/58; PULSE 54; RESP 16; O2SAT 99
[2017-05-07 02:27] VITALS: BP 102/58; PULSE 64; RESP 18; O2SAT 99
[2017-05-07 06:24] VITALS: BP 103/51; PULSE 61; RESP 16; O2SAT 9; O2SAT 99
[2017-05-07 10:00] VITALS: BP 120/77; PULSE 68; RESP 18
--- NOTE | 2017-05-07 11:09 | PD.PSY.CON ---
Provisional Diagnosis Admission Date Date of consultation 05/07/17 [place] I. 1. Adjustment disorder, unspecified 2. History of substance use disorder [place] II. Deferred [place] V. GAF is 60 presently History of Present Illness Service Psychiatry Consult Requested By Emergency department Reason for Consult [facility] Primary Care Physician Unknown HPI Mr. Jain is a 22-year-old male with a history of substance use issues and adjustment disorder who presents in transfer from [facility] under a Vinson act. Reviewing the documentation from [place], it appears the patient presented there voluntarily with suicidal ideation and was placed under the Vinson act. Reviewing the electronic medical record here at [place], it appears the patient was admitted for a brief stay under my care at the end of March of this year. Patient seen and examined. Chart reviewed. Case discussed with nursing staff. Patient has been observed in the J-pod overnight with no evidence of any suicidality or homicidality. On my examination today, the patient says that he thinks that he wasn't taking his medications right and was just feeling stressed out. He says that he went to [place] because "I was worried about myself, but I'm not worried about myself now." He denies any suicidal or homicidal ideation, intent or plan on direct questioning and contracts for safety. Future oriented. Denies any audiovisual hallucinations. No delusional material elicited. No depressive or hypomanic/manic symptoms at this time. Remainder of the psychiatric ROS is negative. Patient is requesting discharge from the psychiatric emergency room. Past psychiatric history: Diagnoses as above. Recent admission here. Follows psychiatrically at [facility]. No history of suicide attempts. Family history: Patient denies family history of serious mental illness. Denies family history of suicide. Chemical dependency history: Patient reports that he has been abstaining from substances of abuse. Urine toxicology at outside hospital was negative. Patient does have a history of substance use issues. Social history: Living with his grandmother and [place]. Not presently working. No legal issues. Denies any access to guns or firearms. Review of Systems Except as stated in HPI: all other systems reviewed are Neg Past Family Social History Coded Allergies: No Known Allergies (Unverified , 03/14/17) Past Medical History see emr Active Scripts Citalopram (Celexa)20 Mg Tab20 Mg PO DAILY 15 Days Ref 1 Prov:Chaiffetz,Ld B. MD 04/14/17 Bupropion HCl ER 12 HR (Wellbutrin SR 12 HR)100 Mg Dve248 Mg PO BID@ 15 Days Ref 1 Prov:Ld Phillips MD 04/14/17 Family History See above Social History See above Patient's Strengths (min. 2) able to access healthcare. verbal. Physical Exam PE completed by ED provider. On my exam no abnormal motor movements noted. No physical distress. Labs and vital signs reviewed: Vital Signs Vital Signs Date Time Temp Pulse Resp B/P Pulse Ox O2 Delivery O2 Flow Rate FiO2 05/07/17 10:00 68 18 120/77 Room Air 05/07/17 06:24 99 05/06/17 16:16 98.4 Lab Results Laboratory Tests Test 05/06/17 16:20 White Blood Count 8.3 TH/MM3 Red Blood Count 5.01 MIL/MM3 Hemoglobin 15.7 GM/DL Hematocrit 45.8 % Mean Corpuscular Volume 91.4 FL Mean Corpuscular Hemoglobin 31.4 PG Mean Corpuscular Hemoglobin 34.3 % Concent Red Cell Distribution Width 13.4 % Platelet Count 247 TH/MM3 Mean Platelet Volume 8.0 FL Neutrophils (%) (Auto) 48.7 % Lymphocytes (%) (Auto) 37.1 % Monocytes (%) (Auto) 10.5 % Eosinophils (%) (Auto) 3.2 % Basophils (%) (Auto) 0.5 % Neutrophils # (Auto) 4.0 TH/MM3 Lymphocytes # (Auto) 3.1 TH/MM3 Monocytes # (Auto) 0.9 TH/MM3 Eosinophils # (Auto) 0.3 TH/MM3 Basophils # (Auto) 0.0 TH/MM3 CBC Comment DIFF FINAL Differential Comment Sodium Level 140 MEQ/L Potassium Level 4.1 MEQ/L Chloride Level 105 MEQ/L Carbon Dioxide Level 27.1 MEQ/L Anion Gap 8 MEQ/L Blood Urea Nitrogen 14 MG/DL Creatinine 0.94 MG/DL Estimat Glomerular Filtration 99 ML/MIN Rate Random Glucose 83 MG/DL Calcium Level 9.3 MG/DL Total Bilirubin 0.4 MG/DL Aspartate Amino Transf 12 U/L (AST/SGOT) Alanine Aminotransferase 16 U/L (ALT/SGPT) Alkaline Phosphatase 84 U/L Total Protein 7.5 GM/DL Albumin 4.1 GM/DL Urine Opiates Screen NEG Urine Barbiturates Screen NEG Urine Amphetamines Screen NEG Urine Benzodiazepines Screen NEG Urine Cocaine Screen NEG Urine Cannabinoids Screen NEG Ethyl Alcohol Level LESS THAN 3 MG/DL Mental Status Examination Patient is in hospital gown. He is well groomed and maintaining basic hygiene. He appears to be attending to his basic needs. Awake and alert and oriented 3. No evidence of delirium. No motor abnormalities noted. Speech within normal limits for rate, tone and volume. Language and fund of knowledge average. Focus and concentration intact. Mood fair and affect full and reactive. Thought process linear. No loosening of associations. No evident delusional material. Denies audiovisual hallucinations. Denies suicidal or homicidal ideation, intent or plan. Insight and judgment are fair. Assessment & Plan Problem List: (1) Adjustment disorder ICD Code: F43.20 Assessment & Plan 22-year-old male with psychiatric history as detailed above presents in transfer from outside hospital under a Vinson act. On my evaluation today, the patient denies any suicidal or homicidal ideation. There is no evidence of any unstable mental illness in this patient at this time. He appears to be attending to his basic needs. Weighing the relevant factors, patient doesn't meet Vinson act criteria. I lifted the Vinson act. I've encouraged compliance with medications. I have instructed the patient to follow up with his outpatient psychiatric provider. I have supported the patient in his recent sobriety and encouraged ongoing abstinence from substances of abuse. Patient to return to the psychiatric emergency room for any concerning psychiatric symptoms as part of a general safety plan. Otherwise, patient is psychiatrically clear for discharge from the ED. Thank you very much for this consultation. Request Surrog/Guard Advoc?: No Problem Qualifiers (1) Adjustment disorder: Qualified Code: F43.20 - Adjustment disorder, unspecified type Ld Phillips MD May 07, 2017 11:09
== END 2017-05-07 11:15 | disposition home or self-care (01) ==
LOC: NEPJ 16:02
DX: R45.851 Suicidal ideations (principal); F90.9 Attention-deficit hyperactivity disorder, unspecified type; Z79.899 Other long term (current) drug therapy
CPT/HCPCS: 80053; 80307; 85025; 99284

== ENCOUNTER 2017-05-13 15:25 | Emergency (ER) | payer OTHER ==
[2017-05-13 17:05] VITALS: BP 114/55; PULSE 77; RESP 18; TEMP 99.2; O2SAT 100
--- NOTE | 2017-05-13 17:25 | PD ---
HPI Chief Complaint: Psychiatric Symptoms Time Seen by Provider: 17:22 Travel History International Travel<30 days: No Contact w/Intl Traveler<30days: No Traveled to known affect area: No History of Present Illness HPI 22-year-old male presents to the ED for psychiatric evaluation. The patient was a transfer from outside hospital. On presentation he endorses suicidal ideation, denies a specific plan. He denies previous psychiatric diagnoses or previous psychiatric hospitalization. He denies previous suicide attempt. He endorses several social stressors including difficulties in his romantic relationships, financial pressures and recent homelessness. He denies somatic complaints. He endorses use of cocaine, methamphetamine, marijuana, and alcohol. Last use alcohol "a few days ago." Denies recent illicit drug use. PFSH Past Medical History ADHD: Yes Anxiety: Yes Depression: Yes Cancer: No Cardiovascular Problems: No Diabetes: No Diminished Hearing: No Genitourinary: No Headaches: No Musculoskeletal: No Neurologic: No Psychiatric: Yes (Mood Disoder and Substance Abuse ) Reproductive: No Respiratory: No Immunizations Current: Yes Schizophrenia: Yes Seizures: No Social History Alcohol Use: Yes (Liquor, "a lot" and yesterday) Tobacco Use: Yes Substance Use: No Allergies-Medications (Allergen,Severity, Reaction): Coded Allergies: No Known Allergies (Unverified , 03/14/17) Reported Meds & Prescriptions Reported Meds & Active Scripts Active Celexa (Citalopram Hydrobromide) 20 Mg Tab 20 Mg PO DAILY 15 Days Wellbutrin SR 12 HR (Bupropion HCl) 100 Mg Tab 100 Mg PO BID@09,15 15 Days Review of Systems Except as stated in HPI: all other systems reviewed are Neg Physical Exam Narrative GENERAL: Well-nourished, well-developed thin white male in no acute distress. PSYCHIATRIC: No delusional thought processes. No hallucinations. Que, volunteers no information, avoids eye contact SKIN: Focused skin assessment warm/dry. HEAD: Normocephalic. EYES: No scleral icterus. No injection or drainage. NECK: Supple, trachea midline. No JVD or lymphadenopathy. CARDIOVASCULAR: Regular rate and rhythm without murmurs, gallops, or rubs. RESPIRATORY: Breath sounds clear and equal bilaterally. No accessory muscle use. GASTROINTESTINAL: Abdomen soft, non-tender, nondistended. Active bowel sounds. MUSCULOSKELETAL: No cyanosis, or edema. BACK: Nontender without obvious deformity. No CVA tenderness. Data Data Last Documented VS Vital Signs Date Time Temp Pulse Resp B/P Pulse Ox O2 Delivery O2 Flow Rate FiO2 05/13/17 17:05 99.2 77 18 114/55 100 Room Air Orders Psych Screen (05/13/17 16:02) MDM Medical Decision Making Medical Screen Exam Complete: Yes Emergency Medical Condition: Yes Differential Diagnosis Adjustment disorder versus anxiety versus bipolar versus depression versus dementia versus electrolyte disorder versus malingering versus mood disorder versus ODD versus psychosis versus PTSD versus schizophrenia versus schizoaffective disorder versus substance-induced mood disorder versus other Narrative Course 22-year-old male presents to the ED for psychiatric evaluation. The patient was a transfer from outside hospital. On presentation he endorses suicidal ideation, denies a specific plan. He denies previous psychiatric diagnoses or previous psychiatric hospitalization. He denies previous suicide attempt. He endorses several social stressors including difficulties in his romantic relationships, financial pressures and recent homelessness. He denies somatic complaints. He endorses use of cocaine, methamphetamine, marijuana, and alcohol. Last use alcohol "a few days ago." Denies recent illicit drug use. Vitals reviewed. Patient has a strange affect, is very que, avoids eye contact. Physical exam is unremarkable. I reviewed the lab work and drug screen from outside hospital, all unremarkable. The patient is medically clear for psychiatric evaluation. Please see segments for disposition. Diagnosis Primary Impression: Medical clearance for psychiatric admission Yumi Sharma May 13, 2017 17:25
[2017-05-14 02:25] VITALS: BP 101/61; PULSE 67; RESP 18; O2SAT 98
[2017-05-14 06:30] VITALS: BP 99/58; PULSE 64; RESP 18; O2SAT 98
[2017-05-14 10:37] VITALS: BP 106/58; PULSE 84; RESP 18
--- NOTE | 2017-05-14 14:28 | PD ---
History of Present Illness Chief Complaint: Psychiatric Symptoms Time Seen by Provider: 14:00 Travel History International Travel<30 Days: No Contact w/Intl Traveler<30days: No Known affected area: No Legal Status Legal Status: Vinson Act Vinson Act Signed By: Valeri Reeves History of Present Illness: History of Present Illness HPI Patient is a 22-year-old male with a reported history of depression, anxiety and ADHD and a chart history of psychotic disorder and substance use issues who presents in transfer from [facility] under a Vinson Act initiated by physician at such hospital alleging suicidal ideation. The BA states that " the patient has been having thoughts of hurting himself for some time. He is unable to clarify what he plans or how long he has had the thoughts but he is worse today". Outside hospital records reviewed. EMR is reviewed. I note that he has been seen in ED several times in the past with his last visit on May 06. His most recent admission to psychiatry was in March 2017 under the care of Dr. Phillips for reported suicidal ideation. I also note several ED visits for substance use issues. Marcos presented with no behavioral concerns in J pod and no suicidality. Patient seen and examined with JACINTO Conde . Patient is alert, oriented. decreased eye contact. He states " I was thinking dumb things and I went to the hospital I don't have those thoughts now". His sleep and appetite are reportedly fair. He denies audiovisual hallucinations and I can elicit no delusional material. No hypomanic or manic symptoms noted. He denies any homicidal ideation. He has been nonadherent with his psychotropic medications since discharge from the inpatient psychiatric unit most recently. The remainder of the psychiatric ROS is negative. He endorses several social stressors including difficulties in his romantic relationships, financial pressures. He also admits to use of marijuana, cocaine, methamphetamine and alcohol . Last used a few days ago. PFSH Past Medical History ADHD: Yes Anxiety: Yes Depression: Yes Cancer: No Cardiovascular Problems: No Diabetes: No Diminished Hearing: No Genitourinary: No Headaches: No Musculoskeletal: No Neurologic: No Psychiatric: Yes (Mood Disoder and Substance Abuse ) Reproductive: No Respiratory: No Immunizations Current: Yes Schizophrenia: Yes Seizures: No Psychiatric History Psychiatric History Hx Psychiatric Treatment: HX OF SUICIDAL IDEATION AND HAS HAD MANY VISITS TO THE ED. Last psyhciatric hospitalization in March 2017. Poor medication and treatmetn compliance History of Inpatient Treatment: Yes Guns or firearms in home: No Social History Single male. Currently living with his grandmother. Unemployed. Hx Alcohol Use: Yes (Liquor, "a lot" and yesterday) Hx Tobacco Use: Yes Hx Substance Use: No Substance Use Type: Alcohol, Nicotine/Cigarettes, Cocaine Other Substances Used: Cocaine was 3 months ago. Hx of Substance Use Treatment: Yes Family Psychiatric History None reported Allergies-Medications (Allergen,Severity, Reaction): Coded Allergies: No Known Allergies (Unverified , 03/14/17) Reported Meds & Prescriptions Reported Meds & Active Scripts Active Celexa (Citalopram Hydrobromide) 20 Mg Tab 20 Mg PO DAILY 15 Days Wellbutrin SR 12 HR (Bupropion HCl) 100 Mg Tab 100 Mg PO BID@09,15 15 Days Review of Systems Except as stated in HPI: all other systems reviewed are Neg Exam Alert: Yes [place]: Person (ox4) Mood: Calm Affect: Appropriate Speech: Clear, Logical Eye Contact: Indirect Memory Intact: Comment (no impairmetn) Hallucinations: Other (negative) Delusions: No Suicidal: Ideation (Deneis any) Homicidal: Ideation (Deneis any) Insight/Judgement Poor. Poor MDM Medical Decision Making Medical Record Reviewed: Yes Assessment/Plan Patient is a 22-year-old male with a reported history of depression, anxiety and ADHD and a chart history of psychotic disorder and substance use issues who presents in transfer from [facility] under a Vinson Act initiated by physician at such hospital alleging suicidal ideation. The BA states that " the patient has been having thoughts of hurting himself for some time. He is unable to clarify what he plans or how long he has had the thoughts but he is worse today". Patient was monitored in safe environment and presented no suicidality. he contracts for safety if discharged. At this time he does not meet criteria for inpatient care or criteria for BA. The BA will be lifted. he is counseled on follow up care as well as instructed to return to Ed if any changes. Orders Psych Screen (05/13/17 16:02) Diet Regular Basic (05/14/17 Breakfast) Diet Regular Basic (05/14/17 Lunch) Results Vital Signs Date Time Temp Pulse Resp B/P Pulse Ox O2 Delivery O2 Flow Rate FiO2 05/14/17 10:37 84 18 106/58 Room Air 05/14/17 06:30 64 18 99/58 98 05/14/17 02:25 67 18 101/61 98 05/13/17 17:05 99.2 77 18 114/55 100 Room Air Diagnosis Primary Impression: Medical clearance for psychiatric admission Additional Impression: Adjustment disorder Psychiatrically Cleared: Yes Med/ Other Pt Specific Info: No Meds Exist/No RX given Disposition: 01 DISCHARGE HOME Condition: Stable Problem Qualifiers Additional Impression: Adjustment disorder Qualified Code: F43.21 - Adjustment disorder with depressed mood Dafne Gunn May 14, 2017 14:28
[2017-05-14 15:15] VITALS: BP 106/58; TEMP 98.3
== END 2017-05-14 15:30 | disposition home or self-care (01) ==
LOC: NEPJ 15:25
DX: F43.21 Adjustment disorder with depressed mood (principal); F20.9 Schizophrenia, unspecified; F90.9 Attention-deficit hyperactivity disorder, unspecified type; F32.9 Major depressive disorder, single episode, unspecified
CPT/HCPCS: 99284

== ENCOUNTER 2017-06-01 04:43 | Inpatient (IN) | payer SELFPAY ==
[~2017-06-01] VITALS: Ht 172.7 cm; Wt 55.4 kg
[2017-06-01 06:14] VITALS: BP 114/68; PULSE 81; RESP 16; TEMP 98; O2SAT 96
[2017-06-01] MEDS ORDERED: LORazepam 2 MG/ML VIAL IM PRN (06:30)
[2017-06-01] MEDS ORDERED: diphenhydrAMINE HCL 50 MG/ML VIAL IM PRN (06:30)
[2017-06-01] MEDS ORDERED: MAGNESIUM HYDROXIDE SUSP 30 ML CUP PO PRN (06:30)
[2017-06-01] MEDS ORDERED: ALUMINUM/MAGNESIUM/SIMETH 30 ML CUP PO PRN (06:30)
[2017-06-01] MEDS: NICOTINE 21 MG/24 HR PATCH T-DERMAL SCH (08:24)
[2017-06-01] MEDS: LORazepam 1 MG TAB PO PRN ×2 (14:45→22:03)
[2017-06-01 17:14] VITALS: BP_SYST 109; BP_SYST 128; BP_DIAS 49; BP_DIAS 76; PULSE 77; PULSE 84; RESP 17; TEMP 97.8; TEMP 98.5; O2SAT 98
--- NOTE | 2017-06-01 18:03 | HHI.HP ---
Provisional Diagnosis Admission Date Jun 01, 2017 at 05:40 [place] I. Adjustment disorder with depressed mood [place] III. Denies [place] IV. Homeless, unemployed, poor social support, chemical dependence [place] V. 45 Certification of Person's Competence To Provide Express and Informed Consent I have personally examined Jimmie Jain , a person being served at [facility] on, Jun 01, 2017 17:50. Express and informed consent means consent voluntarily given in writing, by a competent person, after sufficient explanation and disclosure of the subject matter involved to enable the person to make a knowing and willful decision without any element of force, fraud, deceit, duress, or other form of constraint or coercion. This person is 18 years of age or older, is not now known to be incompetent to consent to treatment with a guardian advocate, and does not have a health care surrogate or proxy currently making medical treatment decisions. I have found this person to be one of the following: [x] Competent to provide express and informed consent, as defined above, for voluntary admission to this facility and is competent to provide express and informed consent for treatment. He/she has the consistent capacity to make well reasoned, willful, and knowing decisions concerning his or her medical or mental health treatment. The person fully and consistently understands the purpose of the admission for examination/placement and is fully capable of personally exercising all rights assured under [place] [] Incompetent to provide express and informed consent to voluntary admission, and this is incompetent to provide express and informed consent to treatment. The person must be transferred to involuntary status and a petition for a guardian advocate filed with the Circuit Court. [] Refusing to provide express and informed consent to voluntary admission but is competent to provide express and informed consent for treatment. The person must be discharged or transferred to involuntary status. Form shall be completed within 24 hours of a person's arrival at the receiving facility and filed in the clinical record of each person: 1. Admitted on a voluntary basis 2. Permitted to provide express and informed consent to his/her own treatment 3. Allowed to transfer from involuntary to voluntary status 4. Prior to permitting a person to consent to his or her own treatment after having been previously found incompetent to consent to treatment. History of Present Illness Capacity: Has Capacity HPI Patient is a 32-year-old man, homeless, unemployed, past psychiatric history of self-reported ADHD, THC use disorder was transferred from an outside hospital under Vinson act for suicidal ideations. Reviewing medical records patient was admitted to the inpatient unit in March 2017 for similar presentation. Patient has had several ED visits for substance use. As per nursing report patient was previously admitted to the inpatient in March, currently homeless, came from [facility] for suicidal ideation with no plan, was positive urine toxicology for marijuana and has had many ER visits. Patient was found lying in hospital bed, superficially cooperative in interview. Patient states that he was brought to the hospital from a different facility ER and stated there that he had felt like hurting himself which began one day ago and since has been feeling okay. She denies any depressive symptoms reporting good sleep, appetite, energy, and, concentration but does endorse feeling depressed and feeling helpless and hopeless in the past couple of days along with suicidal ideations 1 day since yesterday. Patient this time reports feeling good denies any suicidality at this time denies any manic or psychotic symptoms in the time of interview denies SI, HI, AVH or delusions. Patient throughout interview was noted to be superficially cooperative. Past psychiatric history: Previous psychiatric diagnoses of ADHD as per patient , THC use disorder, prior psychiatric hospitalizations (last being in March of this year) no current outpatient mental health provider but as per chart had previous in followed up as an outpatient with Dr. Delcid. Patient denies any previous history of suicide attempt but has history of self-injurious behavior via cutting, denies any history of physical or sexual abuse. Patient previous on citalopram and on bupropion in the past. Family psychiatric history: Patient denies history of mental illness or suicides in the family. Substance use history: Patient reports tobacco use one pack per day, THC use but does not elaborate states last use was a few weeks ago despite his urine toxicology being positive for marijuana. Patient denies any use of any other illicit substance, denies any previous detox reports having attended rehabilitation program for substance use at [facility] this year. Legal history: History of possession of marijuana which she was incarcerated for a couple of months. Social history: Single, homeless for the past couple of days, previously staying at a friends house, unemployed, has education is ninth grade. Patient states that there is possibility that he could stay with his grandmother. Review of Systems Except as stated in HPI: all other systems reviewed are Neg Past Psych History Psychological trauma history Denies history of abuse Violence risk - others (6 mos) Low Violence risk - self (6 mos) Low Substance Abuse History Drugs/Alcohol past 12 months Tobacco use one pack per day, cannabis use (unspecified the patient does not elaborate), substance rehabilitation program at [facility] this year Past Family Social History Coded Allergies: No Known Allergies (Unverified , 03/14/17) Active Scripts Citalopram (Celexa)20 Mg Tab20 Mg PO DAILY 15 Days Ref 1 Prov:Ld Phillips MD 04/14/17 Bupropion HCl ER 12 HR (Wellbutrin SR 12 HR)100 Mg Mvs482 Mg PO BID@,15 15 Days Ref 1 Prov:Ld Phillips MD 04/14/17 Current Medications Medications (Trade) Dose Ordered Sig/Emerald Route Start Time Stop Time Status Last Admin (Ativan) 1 mg Q6H PRN PO 06/01/17 06:30 06/01/17 14:45 (Ativan Inj) 1 mg Q6H PRN IM 06/01/17 06:30 (Benadryl) 50 mg Q6H PRN PO 06/01/17 06:30 (Benadryl Inj) 50 mg Q6H PRN IM 06/01/17 06:30 (Tylenol) 650 mg Q4H PRN PO 06/01/17 06:30 (Milk Of Magnesia Liq) 30 ml DAILY PRN PO 06/01/17 06:30 (Mag-Al Plus Susp Liq) 30 ml Q6H PRN PO 06/01/17 06:30 (Habitrol 21 Mg Patch.24 Hr) 1 patch DAILY T-DERMAL 06/01/17 09:00 06/01/17 08:24 Miscellaneous Information 1 HS T-DERMAL 06/01/17 21:00 Family History Denies any family history of mental illness, denies any suicides in the family. Social History Patient single, homeless for the past couple days, unemployed, highest education is ninth grade. Patient's Strengths (min. 2) Verbal, communicative Physical Exam Physical exam completed at outside hospital. On my examination today, the patient appears to be well-nourished with no acute physical distress other refuses to participate in physical examination at this time. No abnormal motor movements noted. Labs and vital signs reviewed. Vital Signs Vital Signs Date Time Temp Pulse Resp B/P Pulse Ox O2 Delivery O2 Flow Rate FiO2 06/01/17 17:14 98.5 84 17 109/49 98 Lab Results BMP reviewed Mental Status Examination Appearance Patient appears stated age, found lying in hospital bed under the covers refusing to sit up for interview remained lying down throughout interview. Poor eye contact Speech: Unremarkable Orientation: x3 Memory: Unremarkable Thought Process: Logical, Linear Thought Content: Unremarkable Language Fluid and spontaneous Fund of Knowledge Fair Hallucination Type: None Attention and Concentration: Good Suicidal Ideation: No Previous Suicide Attempts: No Homicidal Ideation: No Previous Homicide Attempts: No Insight: Fair Judgment: WNL Affect: Other (constricted) Mood: Other ("good") Assessment & Plan Problem List: (1) Adjustment disorder with depressed mood ICD Code: F43.21 Assessment & Plan Estimated LOS: 2-3 days. Patient is 22-year-old man who carries diagnoses of self-reported ADHD, marijuana use disorder who was transferred from [facility] ER for suicide ideations and currently under Vinson act for the same. Patient at this time denies any significant depressive symptoms along aside from feeling depressed, and having suicidal ideations since yesterday in the context of being recently homeless with no financial support at this time. Patient at this time denies any suicidality. Patient current depressed mood may be secondary to recent cannabis use as his urine toxicology was positive for cannabis although due to patients recent social circumstances it is possible that patient may be seeking secondary gain but due to endorsement of suicidality patient will remain on inpatient unit for observation for safety. Plan: Patient currently voluntary status, resume bupropion 100 mg by mouth twice a day for depressive symptoms and will observe patient while on the unit.. Possibility of connecting patient to outpatient provider for therapy was discussed with patient which he agreed to. Discharge planning in progress Discharge Planning In progress Request HC Surrog/Guard Advoc?: Art Garcia MD Jun 01, 2017 18:03
[2017-06-01] MEDS: REMOVE OLD NICOTINE PATCH T-DERMAL SCH (21:00)
[2017-06-01] MEDS: buPROPion HCL 100 MG TAB PO SCH (21:00)
[2017-06-01] MEDS: diphenhydrAMINE HCL 50 MG CAP PO PRN (22:04)
[2017-06-01] MEDS: ACETAMINOPHEN 325 MG TAB PO PRN (22:04)
[2017-06-02 05:18] VITALS: BP_SYST 10; BP_SYST 105; BP_DIAS 62; BP_DIAS 64; PULSE 76; PULSE 77; RESP 16; RESP 18; TEMP 97.7; TEMP 97.9; O2SAT 97; O2SAT 98
[2017-06-02] MEDS: buPROPion HCL 100 MG TAB PO SCH ×2 (08:36→20:31)
[2017-06-02] MEDS: NICOTINE 21 MG/24 HR PATCH T-DERMAL SCH (08:36)
[2017-06-02 08:41] LABS: AUTOMATED NEUTROPHIL # 2.3 TH/MM3 (1.8-7.7); BASOPHIL % 0.6 % (0.0-2.0); EOSINOPHIL # 0.2 TH/MM3 (0-0.4); EOSINOPHIL % 3.8 % (0.0-4.0); HEMATOCRIT 43.7 % (39.0-51.0); HEMO FLAGS DIFF FINAL; LYMPH % 39.4 % (9.0-44.0); MEAN CELL VOLUME 91.6 FL (80.0-100.0); MEAN CORPUSCULAR HEMOGLOBIN 31.6 PG (27.0-34.0); MEAN CORPUSCULAR HGB CONC 34.6 % (32.0-36.0); MONO % 11.9 % (0.0-8.0); NEUT % 44.3 % (16.0-70.0); PLATELET COUNT 207 TH/MM3 (150-450); RED BLOOD COUNT 4.77 MIL/MM3 (4.50-5.90); RED CELL DISTRIBUTION WIDTH 13.6 % (11.6-17.2); WHITE BLOOD COUNT 5.1 TH/MM3 (4.0-11.0)
[2017-06-02 09:22] LABS: INDIRECT BILIRUBIN 0.4 MG/DL (0.0-0.8); TOTAL BILIRUBIN ADULT 0.5 MG/DL (0.2-1.0)
--- NOTE | 2017-06-02 11:33 | EKG ---
Date Performed: 06/01/2017 Time Performed: 20:44:07 PTAGE: 22 years EKG: Sinus rhythm BORDERLINE RIGHT AXIS DEVIATION POSSIBLE RIGHT VENTRICULAR CONDUCTION DELAY BORDERLINE ECG Compared to prior tracing no significant change PREVIOUS TRACING : 05/29/2016 19.05 DOCTOR: Nghia Lua Interpretating Date/Time 06/02/2017 11:30:41
[2017-06-02] MEDS: LORazepam 1 MG TAB PO PRN ×2 (14:17→20:33)
--- NOTE | 2017-06-02 14:34 | HHI.PYPN ---
Subjective Remarks Patient is seen for follow-up, chart reviewed. Patient found lying in hospital bed asleep, was able to wake up to engage in interview but was superficially cooperative. Patient stated that he did feeling "good", slept well last night, eating and drinking okay, patient initially denied feeling sad or depressed but then later said he is feeling a little sad but cannot express why he was feeling sad, simply stating "I don't know". Currently patient reports feeling good denies any suicidal ideations, denies any HI, AVH or delusions. She has recalled current stressors that contributed to his recent suicidality upon ER presentation he simply states "I'm not sure". Patient states tolerating medications well denying any adverse drug reactions at this time. Review of Systems Except as stated in HPI: all other systems reviewed are Neg Objective Alert: Yes [place]: Person, Place, Date Mood: Other ("good") Affect: Other (slightly guarded) Memory Intact: Comment (not formally assessed) Hallucinations: Other (denies) Delusions: No Delusion Type: Other (denies) Suicidal: Ideation (denies) Homicidal: Ideation (denies) Insight/Judgment Fair insight, impulse control and judgment Labs Test 06/02/17 07:43 White Blood Count 5.1 TH/MM3 Red Blood Count 4.77 MIL/MM3 Hemoglobin 15.1 GM/DL Hematocrit 43.7 % Mean Corpuscular Volume 91.6 FL Mean Corpuscular Hemoglobin 31.6 PG Mean Corpuscular Hemoglobin 34.6 % Concent Red Cell Distribution Width 13.6 % Platelet Count 207 TH/MM3 Mean Platelet Volume 8.2 FL Neutrophils (%) (Auto) 44.3 % Lymphocytes (%) (Auto) 39.4 % Monocytes (%) (Auto) 11.9 % Eosinophils (%) (Auto) 3.8 % Basophils (%) (Auto) 0.6 % Neutrophils # (Auto) 2.3 TH/MM3 Lymphocytes # (Auto) 2.0 TH/MM3 Monocytes # (Auto) 0.6 TH/MM3 Eosinophils # (Auto) 0.2 TH/MM3 Basophils # (Auto) 0.0 TH/MM3 CBC Comment DIFF FINAL Differential Comment Total Bilirubin 0.5 MG/DL Direct Bilirubin 0.1 MG/DL Indirect Bilirubin 0.4 MG/DL Aspartate Amino Transf 11 U/L (AST/SGOT) Alanine Aminotransferase 17 U/L (ALT/SGPT) Alkaline Phosphatase 78 U/L Total Protein 6.3 GM/DL Albumin 3.6 GM/DL Thyroid Stimulating Hormone 0.645 uIU/ML 3rd Gen Vitals/IOs Vital Signs Date Time Temp Pulse Resp B/P Pulse Ox O2 Delivery O2 Flow Rate FiO2 06/02/17 05:18 97.9 76 16 105/64 97 Intake and Output 06/01/17 06/01/17 06/01/17 07:59 15:59 23:59 Intake Total 480 ml Balance 480 ml Assessment & Plan Problem List: (1) Adjustment disorder with depressed mood ICD Code: F43.21 Assessment & Plan Estimated LOS: 2-3 days. Patient at this time denies any depressive symptoms and denies any suicidality, continued to be noted to be guarded and unwilling to cooperate fully in interview. His high suspicion the patient endorsed suicidality due to recent social circumstances(e.g. homelessness). Patient agrees to follow with outpatient care as well as referral to a assisted if family is unable to be located and except the patient to live with them. Patient at this time that he have any acute psychiatric symptoms that would stay further psychiatric hospitalization. Patient likely to be discharged tomorrow with discharge plan including outpatient follow-up. Patient to continue current treatment. Monitor for medication response and adverse drug reactions. Justification for Cont. Inpt. Patient risk for decompensation if a lower level of care at this time without defined discharge plan Discharge Planning In progress Request HC Surrog/Guard Advoc?: Art Garcia MD Jun 02, 2017 14:34
--- NOTE | 2017-06-02 16:23 | PD.TTN ---
Present for Treatment Team Treatment Team Staff: Provider (), Nurse (Olivia Augustin, RN), Psych Therapist (Genesis Mcclellan [facility]) Patient Problems 1. Discharge planning 2. Medication compliance 3. Knowledge deficit 4. Lack of coping skills Progress Toward Goals Provider Input: Patient is compliant with medications and does not seem to have side effects from them. Patient is compliant with treatment and is willing to sign voluntary. Patient denies SI and AVH. Nurse Input: Patient is isolative to self and is compliant with medications. patient is cooperative and calm on the unit and does not display behavioral issues. Psych Therapist Input: Patient is short in speech and does not give much response to how he is feeling. Patient is noted to have some malingering tendencies and does not seem to have much insight upon mental illness. Genesis Marino [facility] Jun 02, 2017 16:23
[2017-06-02] MEDS: diphenhydrAMINE HCL 50 MG CAP PO PRN (20:32)
[2017-06-02] MEDS: ACETAMINOPHEN 325 MG TAB PO PRN (20:33)
[2017-06-02] MEDS: REMOVE OLD NICOTINE PATCH T-DERMAL SCH (20:35)
[2017-06-03 06:05] VITALS: BP 118/60; PULSE 65; RESP 16; TEMP 97.6; O2SAT 98
[2017-06-03] MEDS: buPROPion HCL 100 MG TAB PO SCH (09:18)
[2017-06-03] MEDS: NICOTINE 21 MG/24 HR PATCH T-DERMAL SCH (09:19)
[2017-06-03] MEDS ORDERED: BUPR100T4 PO (11:20)
--- NOTE | 2017-06-03 18:21 | HHI.DS ---
Psychiatry Discharge Summary Inpatient Psychiatric care?: Yes Advance Directive: No Reason Not Provided: declined Mental Health AdvanceDirective: No Health Care Proxy: No Admission Admission Date Jun 01, 2017 at 05:40 Admission Diagnosis: (1) Adjustment disorder with depressed mood ICD Code: F43.21 Brief History Patient is a 32-year-old man, homeless, unemployed, past psychiatric history of self-reported ADHD, THC use disorder was transferred from an outside hospital under Vinson act for suicidal ideations. Reviewing medical records patient was admitted to the inpatient unit in March 2017 for similar presentation. Patient has had several ED visits for substance use. As per nursing report patient was previously admitted to the inpatient in March, currently homeless, came from [facility] for suicidal ideation with no plan, was positive urine toxicology for marijuana and has had many ER visits. Patient was found lying in hospital bed, superficially cooperative in interview. Patient states that he was brought to the hospital from a different facility ER and stated there that he had felt like hurting himself which began one day ago and since has been feeling okay. She denies any depressive symptoms reporting good sleep, appetite, energy, and, concentration but does endorse feeling depressed and feeling helpless and hopeless in the past couple of days along with suicidal ideations 1 day since yesterday. Patient this time reports feeling good denies any suicidality at this time denies any manic or psychotic symptoms in the time of interview denies SI, HI, AVH or delusions. Patient throughout interview was noted to be superficially cooperative. Past psychiatric history: Previous psychiatric diagnoses of ADHD as per patient , THC use disorder, prior psychiatric hospitalizations (last being in March of this year) no current outpatient mental health provider but as per chart had previous in followed up as an outpatient with Dr. Delcid. Patient denies any previous history of suicide attempt but has history of self-injurious behavior via cutting, denies any history of physical or sexual abuse. Patient previous on citalopram and on bupropion in the past. Family psychiatric history: Patient denies history of mental illness or suicides in the family. Substance use history: Patient reports tobacco use one pack per day, THC use but does not elaborate states last use was a few weeks ago despite his urine toxicology being positive for marijuana. Patient denies any use of any other illicit substance, denies any previous detox reports having attended rehabilitation program for substance use at [facility] this year. Legal history: History of possession of marijuana which she was incarcerated for a couple of months. Social history: Single, homeless for the past couple of days, previously staying at a friends house, unemployed, has education is ninth grade. Patient states that there is possibility that he could stay with his grandmother. Tobacco Use In Past 30 Days: No Tobacco Past 30 Days Alcohol Use: Never Hospital Course Patient is a 32-year-old man, homeless, unemployed, past psychiatric history of self-reported ADHD, THC use disorder was transferred from an outside hospital under Vinson act for suicidal ideations. Reviewing medical records patient was admitted to the inpatient unit in March 2017 for similar presentation. Patient has had several ED visits for substance use. Patient upon initial evaluation was noted to be superficially cooperative, reported feeling good, denies any suicidality at that time nor any manic or psychotic symptoms but did endorse some depressive symptoms which patient was restarted on bupropion 100 mg by mouth twice a day for depression and continued to be monitored for safety. There is subsequent evaluations patient continued to be superficial cooperative and denying any depressive symptoms thereafter. Is a possibility that patients recent symptomatology was due to recent cannabis use as patient quickly cleared from depressive symptoms thereafter and was requesting for discharge. Patient upon discharge reported feeling well denied any depressive symptoms denies any suicidality reported wanting to get better and plans to [facility] as well as adhere to treatment and outpatient follow-up for continuity of care patient states that his reason to live now art to get a job, stay sober, and care for himself. Patient reports feeling good denied SI, HI, perceptual disturbances or delusions. Results Blood Pressure 118 / 60 Vital Signs Date Time Temp Pulse Resp B/P Pulse Ox O2 Delivery O2 Flow Rate FiO2 06/03/17 06:05 97.6 65 16 118/60 98 Laboratory Tests Test 06/02/17 07:43 Monocytes (%) (Auto) 11.9 % (0.0-8.0) Aspartate Amino Transf 11 U/L (15-37) (AST/SGOT) Total Protein 6.3 GM/DL (6.4-8.2) Summary of Procedures None Pending results at discharge: No Medications # of Antipsychotic meds at D/C: 0 Approp Antipsych med options 1 - Minimum of three failed multiple trials of monotherapy. 2 - Documented plan to taper to monotherapy due to previous use of multiple meds OR cross-taper in progress at D/C. 3 - Documentation of augmentation of Clozapine. 4 - Justification other than those listed in allowable values 1-3, document here : Discharge Discharge Date: Jun 03, 2017 Discharge Diagnosis: (1) Adjustment disorder with depressed mood ICD Code: F43.21 Mental Status Exam at Disch Patient appears stated age, found in casual clothing, calm and cooperative in interview, fair grooming and hygiene, fair eye contact, speech normal tone and rate and prosody, language fluid and spontaneous, mood "good", affect slightly constricted, thought processes linear and future oriented, thought content denies SI, HI, AVH or delusions, insight fair, impulse control and judgment fair , alert and oriented 3. Pt Condition on Discharge: Stable Discharge Disposition: Discharge Home Discharge Instructions Diet Instructions: As Tolerated, No Restrictions Activities you can perform: Regular-No Restrictions Scheduled Appointment: Jose Cruz Gonzales Appointment Date: Jun 06, 2017 Appointment Time: 7:30am Discharge Time > 30 minutes Discharge/Advance Care Plan Health Problems: (1) Adjustment disorder with depressed mood Goals to promote your health * To prevent worsening of your condition and complications * To maintain your health at the optimal level Directions to meet your goals Take your medications as prescribed Follow your dietary instruction Follow activity as directed Keep your appointments as scheduled Take your immunizations and boosters as scheduled If your symptoms worsen call your PCP, if no PCP go to Urgent Care Center or Emergency Room For / questions related to your inpatient stay or results of tests pending at discharge, please contact Dr. Art Palma at Smoking is Dangerous to Your Health. Avoid second hand smoking Art Palma MD Jun 03, 2017 18:21
== END 2017-06-03 14:15 | disposition home or self-care (01) | DRG 881 ==
LOC: H260 05:40
PROVIDERS: ADMIT Student in an Organized Health Care Education/Training Program; ATTEND Student in an Organized Health Care Education/Training Program
DX: F43.21 Adjustment disorder with depressed mood (principal); F17.210 Nicotine dependence, cigarettes, uncomplicated; F12.90 Cannabis use, unspecified, uncomplicated; F90.9 Attention-deficit hyperactivity disorder, unspecified type; Z59.0 Homelessness
CPT/HCPCS: 80076; 84443; 85025; 93005; Q0163

== ENCOUNTER 2017-07-26 13:30 | Emergency (ER) | payer OTHER ==
[~2017-07-26 13:30] MED LIST changes: +BUPR100T4 PO
[2017-07-26 14:51] VITALS: BP 120/76; PULSE 74; RESP 18
--- NOTE | 2017-07-26 17:22 | PD ---
HPI Chief Complaint: Psychiatric Symptoms Time Seen by Provider: 17:07 Travel History International Travel<30 days: No Contact w/Intl Traveler<30days: No Traveled to known affect area: No History of Present Illness HPI 22-year-old male that presents to the ED for evaluation of Vinson act. Patient was V[facility] acted at [facility] for suicidal ideation. He was brought here as a transfer. He was cleared at the facility. He had blood work done that was essentially unremarkable. There was some mention of possible alcohol abuse. Patient states that he has suicidal thoughts. Has a history of depression and takes Celexa. He denies any substance abuse. Other medical issues. Denies any homicidal ideation. No hearing voices. Per my examination for the most for patient is resting comfortably in no sign of acute distress. No chest pain or shortness of breath. No other medical issues. No allergies to medication. PFSH Past Medical History ADHD: Yes Anxiety: Yes Depression: Yes Cancer: No Cardiovascular Problems: No Diabetes: No Diminished Hearing: No Endocrine: No Genitourinary: No Headaches: No Musculoskeletal: No Neurologic: No Psychiatric: Yes (Mood Disoder and Substance Abuse ) Reproductive: No Respiratory: No Immunizations Current: Yes Schizophrenia: Yes Seizures: No Social History Alcohol Use: Yes Tobacco Use: No Substance Use: Yes (says he smokes marijuana) Allergies-Medications (Allergen,Severity, Reaction): Coded Allergies: No Known Allergies (Unverified , 07/26/17) Reported Meds & Prescriptions Reported Meds & Active Scripts Active Bupropion HCl 100 Mg Tab 100 Mg PO Q12HR Celexa (Citalopram Hydrobromide) 20 Mg Tab 20 Mg PO DAILY 15 Days Wellbutrin SR 12 HR (Bupropion HCl) 100 Mg Tab 100 Mg PO BID@09,15 15 Days Review of Systems Except as stated in HPI: all other systems reviewed are Neg Physical Exam Narrative GENERAL: SKIN: Warm and dry. HEAD: Atraumatic. Normocephalic. EYES: Pupils equal and round. No scleral icterus. No injection or drainage. ENT: No nasal bleeding or discharge. Mucous membranes pink and moist. Tongue is midline. No uvula deviation. NECK: Trachea midline. No JVD. CARDIOVASCULAR: Regular rate and rhythm. No murmurs, S3, S4. RESPIRATORY: No accessory muscle use. Clear to auscultation. Breath sounds equal bilaterally. GASTROINTESTINAL: Abdomen soft, non-tender, nondistended. Hepatic and splenic margins not palpable. MUSCULOSKELETAL: Extremities without clubbing, cyanosis, or edema. No obvious deformities. Full range of motion of the upper and lower extremities bilaterally. 2+ pulses bilaterally. NEUROLOGICAL: Awake and alert. No obvious cranial nerve deficits. Motor grossly within normal limits. Five out of 5 muscle strength in the arms and legs. Normal speech. PSYCHIATRIC: Appropriate mood and affect; insight and judgment normal. Data Data Last Documented VS Vital Signs Date Time Temp Pulse Resp B/P (MAP) Pulse Ox O2 Delivery O2 Flow Rate FiO2 07/26/17 14:51 74 18 120/76 (91) Orders Orders Psych Screen (07/26/17 14:00) Drug Screen, Random Urine (07/26/17 15:22) Labs Laboratory Tests Test 07/26/17 15:15 Urine Opiates Screen NEG Urine Barbiturates Screen NEG Urine Amphetamines Screen NEG Urine Benzodiazepines Screen NEG Urine Cocaine Screen NEG Urine Cannabinoids Screen NEG MDM Medical Decision Making Medical Screen Exam Complete: Yes Emergency Medical Condition: Yes Medical Record Reviewed: Yes Differential Diagnosis Depression versus suicidal ideation versus anxiety versus adjustment disorder versus mood disorder versus bipolar disorder versus schizophrenia versus paranoid disorder versus psychosis versus substance abuse versus alcohol abuse versus alcohol induced psychosis versus homicidality addition versus cutting versus personality disorder Narrative Course 22-year-old male that presents to the ED for evaluation of psych. Patient was properly examined and was found to have signs and symptoms consistent with psychiatric illness. No sign of acute medical distress. Patient was transferred from another facility. Will work at that hospital was done and was negative. He does appear to also have a history of schizophrenia per our records. Drug screen was disorder as he did not have any drug screen of the hospital. screen here was negative. Patient was medically clear. Okay to be seen by psych. Mental health screening was discussed with the patient. Diagnosis Primary Impression: Schizoaffective disorder, bipolar type Emigdio Lutz Jul 26, 2017 17:22
[2017-07-26 18:22] VITALS: BP 118/62; PULSE 71; RESP 18; O2SAT 98
[2017-07-26] MEDS ORDERED: NICOTINE 14 MG/24 HR PATCH T-DERMAL ONE (18:30)
[2017-07-26 22:03] VITALS: BP 115/61; PULSE 78; RESP 16; O2SAT 100
[2017-07-27 02:12] VITALS: BP 114/69; PULSE 69; RESP 16; O2SAT 99
[2017-07-27 06:13] VITALS: BP 115/66; PULSE 68; RESP 17; O2SAT 99
[2017-07-27 10:43] VITALS: BP 115/66; TEMP 98.1
== END 2017-07-27 10:46 ==
LOC: NEPJ 13:30
DX: F25.0 Schizoaffective disorder, bipolar type (principal); Z79.899 Other long term (current) drug therapy
CPT/HCPCS: 80307; 99285